=== PATIENT | female | born 1975 | race Caucasian/White ===

== ENCOUNTER 2018-04-07 19:53 | Emergency (ER) | payer OTHER ==
--- NOTE | 2018-04-07 20:04 | CPEKG ---
Heart Rate: 68 RR Interval: 882 P-R Interval: 204 QRSD Interval: 82 QT Interval: 428 QTC Interval: 456 P [place]: 78 QRS [place]: 75 T Wave [place]: 63 EKG Severity - NORMAL ECG - EKG Impression: SINUS RHYTHM Electronically Signed By: Ignacio Morales 07-Apr-2018 23:19:31
[2018-04-07] MEDS ORDERED: NS 1,000 ML IV ONE (20:28)
[2018-04-07 20:36] LABS: PLATELET COUNT 177 10^3/uL (150-400)
--- NOTE | 2018-04-07 20:50 | EDPHY ---
H & P Stated Complaint: syncope, vomitx1 Time Seen by Provider: 04/07/18 20:50 - Personal History LMP (Females 10-55): 22-28 Days Ago Current Tetanus/Diphtheria Vaccine: Yes Current Tetanus Diphtheria and Acellular Pertussis (TDAP): Yes - Medical/Surgical History Hx Asthma: No Hx Chronic Respiratory Disease: No Hx Diabetes: No Hx Cardiac Disease: No Hx Renal Disease: No Hx Cirrhosis: No Hx Alcoholism: No Hx HIV/AIDS: No Hx Splenectomy or Spleen Trauma: No Other PMH: PMH: breast CA,. PSH: APPY, hysterectomy. - Social History Smoking Status: Never smoked Constitutional: Initial Vital Signs Temperature (C) 36.4 C 04/07/18 19:56 Heart Rate 66 04/07/18 19:56 Respiratory Rate 18 04/07/18 19:56 Blood Pressure 82/59 L 04/07/18 19:56 O2 Sat (%) 99 04/07/18 19:56 O2 Delivery Mode Room Air Allergies/Adverse Reactions: No Known Allergies Allergy (Unverified 04/07/18 19:58) Home Medications: Medication Instructions Recorded Estradiol 04/07/18 Medical Decision Making ED Course/Re-evaluation: CHIEF COMPLAINT: Syncope after marijuana edible HISTORY OF PRESENT ILLNESS: The patient is a 43 y/o female arriving via EMS with her complaining of lightheadedness and syncopal event after consuming a marijuana edible tonight. She is visiting from [place]. She consumed a 10mg THC edible. She says, "it started out like a light buzz" then per her "she started to become dissociative." She then became sweaty and felt faint and sleepy. Her reports she then lost consciousness briefly. She did not strike her head or suffer other injuries during this event. She currently feels tired, but otherwise normal. She denies abdominal pain, fever, urinary symptoms, chest pain, dyspnea, cough, recent illness, or recent trauma. She is normally healthy. REVIEW OF SYSTEMS: A 10 point review of systems was performed and is negative with the exception of the elements mentioned in the history of present illness. PHYSICAL EXAM: HR, BP, O2 Sat, RR. Temp noted General Appearance: Alert, well hydrated, appropriate, and non-toxic appearing. Head: Atraumatic without scalp tenderness or obvious injury Eyes: Pupils equal, round, reactive to light and accommodation, EOMI, no trauma , no injection. Nose: Atraumatic, no rhinorrhea, clear. Throat: Mucus membranes moist. Neck: Supple, nontender, no lymphadenopathy. Respiratory: No retractions, no distress, no wheezes, and no accessory muscle use. Lungs are clear to auscultation bilaterally. Cardiovascular: Regular rate and rhythm, no murmurs, rubs, or gallops. Good capillary refill all extremities. Gastrointestinal: Abdomen is soft, nontender, non-distended, no masses, no rebound, no guarding, no peritoneal signs. Musculoskeletal: Normal active ROM of all extremities, atraumatic. Neurological: Alert, appropriate, and interactive. Nonfocal. Skin: No rashes, good turgor, no nodules on palpation. Past medical history: Breast cancer Past surgical history: Hysterectomy Family history: Noncontributory Social history: at bedside. Visiting from [place]. DIAGNOSTICS/PROCEDURES/CRITICAL CARE TIME: The 12 lead EKG was interpreted by myself. Sinus mechanism. See hard copy and/ or "tracemaster" electronic copy for interpretation. DIFFERENTIAL DIAGNOSIS: The differential diagnosis for the patient's syncope included but was not limited to marijuana intoxication, vasovagal syncope, arrhythmia, dehydration, cardiogenic causes, neurogenic causes, and blood loss. MEDICAL DECISION MAKING: This is a healthy 43 y/o female visiting from [place] who consumed a 10mg THC edible tonight and then had a syncopal event. She is feeling improved upon assessment. Labs and EKG are normal. Suspect vasovagal syncope following marijuana use. She will be discharged home with standard care and follow up instructions. Return precautions discussed. She is comfortable with plan for discharge. - Data Points Laboratory Results: Laboratory Results 04/07/18 20:00 04/07/18 20:00 04/07/18 04/07/18 20:00 20:00 WBC 5.93 10^3/uL 10^3/uL (3.80-9.50) RBC 4.28 10^6/uL 10^6/uL (4.18-5.33) Hgb 13.2 g/dL g/dL (12.6-16.3) Hct 40.0 % % (38.0-47.0) MCV 93.5 fL fL (81.5-99.8) MCH 30.8 pg pg (27.9-34.1) MCHC 33.0 g/dL g/dL (32.4-36.7) RDW 13.1 % % (11.5-15.2) Plt Count 177 10^3/uL 10^3/uL (150-400) MPV 10.6 fL fL (8.7-11.7) Neut % (Auto) 31.6 % L % (39.3-74.2) Lymph % (Auto) 60.0 % H % (15.0-45.0) [place] % (Auto) 6.4 % % (4.5-13.0) Eos % (Auto) 1.3 % % (0.6-7.6) Baso % (Auto) 0.7 % % (0.3-1.7) Nucleat RBC Rel Count 0.0 % % (0.0-0.2) Absolute Neuts (auto) 1.87 10^3/uL 10^3/uL (1.70-6.50) Absolute Lymphs (auto) 3.56 10^3/uL H 10^3/uL (1.00-3.00) Absolute Monos (auto) 0.38 10^3/uL 10^3/uL (0.30-0.80) Absolute Eos (auto) 0.08 10^3/uL 10^3/uL (0.03-0.40) Absolute Basos (auto) 0.04 10^3/uL 10^3/uL (0.02-0.10) Absolute Nucleated RBC 0.00 10^3/uL 10^3/uL (0-0.01) Immature Gran % 0.0 % % (0.0-1.1) Immature Gran # 0.00 10^3/uL 10^3/uL (0.00-0.10) Sodium 136 mEq/L mEq/L (135-145) Potassium 3.5 mEq/L mEq/L (3.3-5.0) Chloride 102 mEq/L mEq/L (97-110) Carbon Dioxide 25 mEq/l mEq/l (22-31) Anion Gap 9 mEq/L mEq/L (8-16) BUN 12 mg/dL mg/dL (7-23) Creatinine 0.9 mg/dL mg/dL (0.6-1.0) Estimated GFR > 60 Glucose 96 mg/dL mg/dL (70-100) Calcium 9.5 mg/dL mg/dL (8.5-10.4) Medications Given: Discontinued Medications Sodium Chloride (Ns) 1,000 mls @ 0 mls/hr IV ONCE ONE PRN Reason: Wide Open Stop: 04/07/18 20:29 Last Admin: 04/07/18 20:30 Dose: 1,000 mls Departure - Departure Disposition: Home, Routine, Self-Care Clinical Impression: Intoxication with marijuana Qualifiers: Complication of substance-induced condition: uncomplicated Qualified Code(s): F12.920 - Cannabis use, unspecified with intoxication, uncomplicated Syncope Qualifiers: Syncope type: unspecified Qualified Code(s): R55 - Syncope and collapse Condition: Good Instructions: Syncope (ED), Polysubstance Abuse (ED), Syncope in Older Adults ( ED) Additional Instructions: Be careful mixing marijuana and alcohol. Get some rest tonight and eat something before going to bed. Drink plenty of water while you are in [place]. Follow up with primary doctor when you return home. Come back to ED for dizziness, chest pain, shortness of breathe, or worsening symptoms. Referrals: Felecia Perales MD [[facility] [place] Primary Care Provider] - As per Instructions Report Scribed for: Ignacio Morales Report Scribed by: Keiry De Souza Date of Report: 04/07/18 Time of Report: 20:55
[2018-04-07 21:07] VITALS: BP 87/66
== END 2018-04-07 21:15 | disposition home or self-care (01) ==
DX: R55 Syncope and collapse (principal); F12.920 Cannabis use, unspecified with intoxication, uncomplicated; Z85.3 Personal history of malignant neoplasm of breast